=== PATIENT | male | born 1960 ===

== ENCOUNTER 2017-05-23 09:18 | Emergency (ER) | payer OTHER ==
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
[2017-05-23] MEDS ORDERED: Morphine 4 mg/ml ISec IVP STA (09:41)
[2017-05-23] MEDS ORDERED: Sodium Chloride 0.9% 500 ML IV STA (09:41)
[2017-05-23 10:15] LABS: EOS % 0.2 % (1.5-5.0); GRAN # 6.78 (1.4-6.5); GRAN % 79.2 % (50.0-68.0); HEMOGLOBIN 15.1 g/dL (14.0-18.0); LYMPH # 1.4 (1.2-3.4); LYMPH % 16.7 % (22.0-35.0); MEAN CELL VOLUME 86.8 fl (80.0-105.0); MEAN CORPUSCULAR HEMOGLOBIN 31.1 pg (25.0-35.0); MEAN CORPUSCULAR HGB CONC 35.8 g/dl (31.0-37.0); MEAN PLATELET VOLUME 9.3 fl (7.0-11.0); MONO # 0.3 (0.1-0.6); MONO % 3.9 % (1.0-6.0); RBC 4.86 10^6/uL (3.5-6.1); RED CELL DISTRIBUTION WIDTH 12.6 % (11.5-14.5); WHITE BLOOD COUNT 8.6 10^3/ul (4.5-11.0)
[2017-05-23 10:20] LABS: PARTIAL THROMBOPLASTIN TIME 30.5 Seconds (25.1-36.5)
[2017-05-23 10:22] LABS: ALBUMIN 4.7 g/dL (3.0-4.8); ALT/SGPT 62 U/L (7-56); AST/SGOT 37 U/L (17-59); BLOOD UREA NITROGEN 15 mg/dL (7-21); CALCIUM 9.7 mg/dL (8.4-10.5); GFR AFRICAN-AMERICAN > 60; GFR NON-AFRICAN AMERICAN > 60
[2017-05-23 10:34] LABS: ALB/GLOB RATIO 1.2 (1.1-1.8)
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
--- NOTE | 2017-05-23 11:19 | CT ---
PROCEDURE: CT Thoracic Spine without contrast HISTORY: upper thoracic spine pain COMPARISON: None. TECHNIQUE: Axial computed tomography images were obtained of the thoracic spine without intravenous contrast. Coronal and sagittal reformatted images were created and reviewed. Radiation dose: Total exam DLP = 1209.41 mGy-cm. This CT exam was performed using one or more of the following dose reduction techniques: Automated exposure control, adjustment of the mA and/or kV according to patient size, and/or use of iterative reconstruction technique. FINDINGS: VERTEBRAE: There is normal alignment of the thoracic vertebral bodies. There is normal thoracic kyphosis. There is diffuse bone demineralization. There is no acute fracture or spondylolisthesis. A focal area of sclerosis in the right posterior superior T5 vertebral bodies statistically most compatible with a bone island. DISCS/SPINAL CANAL/NEURAL FORAMINA: There is ossification of the anterior longitudinal ligament and fusion of the apophyseal joints. There is mild multilevel degenerative disc disease worse at T9-10 with a central disc protrusion which indents the ventral thecal sac without neural foraminal or spinal canal stenosis. There is the paraspinous soft a large Schmorl's node at the inferior endplate of T9 vertebral body. PARASPINAL SOFT TISSUES: The paraspinous soft tissues are normal. OTHER FINDINGS: Unremarkable. IMPRESSION: No acute fracture. Ankylosing spondylitis.
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
[2017-05-23] MEDS ORDERED: Labetalol 5 mg/ml Inj 20ML IV STA ×2 (12:47→19:52)
[2017-05-23] MEDS ORDERED: Labetalol 5 mg/ml Inj 20ML ONE (12:51)
[2017-05-23] MEDS ORDERED: HYDROmorphone 1 mg/ml ISec IVP STA ×2 (12:51→14:35)
[2017-05-23] MEDS ORDERED: Iohexol 350 MG/100 ML VIAL ONE (12:58)
[2017-05-23] MEDS ORDERED: Sodium Chloride 0.9% 1,000 ML IV SCH (13:00)
[2017-05-23 13:20] LABS: LIPASE 169 U/L (23-300)
[2017-05-23 13:33] LABS: TROPONIN I < 0.01 ng/mL
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
[2017-05-23 15:44] LABS: URINE BILIRUBIN NEGATIVE (NEGATIVE); URINE BLOOD LARGE (NEGATIVE); URINE GLUCOSE (UA) 500 mg/dL (NEGATIVE); URINE LEUKOCYTE ESTERASE NEGATIVE Leu/uL (NEGATIVE); URINE NITRATE NEGATIVE (NEGATIVE); URINE PROTEIN TRACE mg/dL (<30 mg/dL); URINE UROBILINOGEN 0.2 E.U./dL (<1 E.U./dL)
[2017-05-23 15:46] LABS: URINE APPEARANCE CLEAR (CLEAR); URINE COLOR YELLOW (YELLOW)
[2017-05-23 16:00] LABS: URINE EPITHELIAL CELLS 0 - 2 /hpf (0-5); URINE RBC 15 - 20 /hpf (0-2); URINE WBC 0 - 2 /hpf (0-6)
[2017-05-23] MEDS ORDERED: HYDROmorphone 0.5 mg/0.5 ml ISec IVP STA ×2 (18:21→19:52)
[2017-05-23 20:56] VITALS: BP 189/99; PULSE 95; RESP 20; TEMP 99; O2SAT 99
--- NOTE | 2017-05-24 08:35 | CARD ---
APPROVED REPORT EKG Measurement Heart [id number] <Conclusion> Sinus tachycardia Small q waves 2,3,F Prolonged QTc NSSTW changes
== END 2017-05-23 21:17 | disposition short-term general hospital (02) ==
LOC: ED 09:18
DX: S12.100A Unspecified displaced fracture of second cervical vertebra, initial encounter for closed fracture (principal); V49.9XXA Car occupant (driver) (passenger) injured in unspecified traffic accident, initial encounter; I10 Essential (primary) hypertension; E11.9 Type 2 diabetes mellitus without complications; Z79.84 Long term (current) use of oral hypoglycemic drugs
CPT/HCPCS: 70450; 70498; 71260; 72125; 72128; 74160; 80053; 81001; 82550; 82948; 83615; 83690; 84484; 85025; 85610; 85730; 93005; 96361; 96374; 96375; 96376; 99291; J0360; J1170; J2270; J2405; J7040; Q9967